=== PATIENT | male | born 1980 | race Caucasian/White ===

== ENCOUNTER 2018-02-05 17:39 | Emergency (ER) | payer OTHER ==
[2018-02-05] MEDS ORDERED: NACL 0.9% 1000 ML 1,000 ML IV ONE (19:29)
[2018-02-05] MEDS ORDERED: TORADOL IV ONE (19:29)
[2018-02-05] MEDS ORDERED: ZOFRAN IV ONE (19:29)
[2018-02-05] MEDS ORDERED: DILAUDID IV ONE (19:29)
[2018-02-05 19:48] LABS: Basophils % (Auto) 0.3 % (0.0-1.8); Eosinophils # (Auto) 0.1 K/mm3 (0.0-0.4); Eosinophils % (Auto) 1.4 % (0.0-4.3); Hemoglobin 13.1 gm/dl (11.8-15.2); Lymphocytes # (Auto) 1.3 K/mm3 (1.2-5.4); Lymphocytes % (Auto) 14.5 % (13.4-35.0); Mean Corpuscular HGB Conc 31 % (32-34); Mean Corpuscular Volume 71 fl (84-94); Monocytes # (Auto) 0.6 K/mm3 (0.0-0.8); Platelet Count 179 K/mm3 (140-440); Red Blood Count 6.01 M/mm3 (3.65-5.03); Red Cell Distribution Width 15.4 % (13.2-15.2)
[2018-02-05 19:49] LABS: Hematocrit 42.5 % (35.5-45.6); Mean Corpuscular Hemoglobin 22 pg (28-32)
[2018-02-05 20:05] LABS: Alanine Aminotransferase 41 units/L (7-56); Albumin 4.2 g/dL (3.9-5); BUN/Creatinine Ratio 15; Blood Urea Nitrogen 16 mg/dL (9-20); Calcium 8.9 mg/dL (8.4-10.2); Hemolysis Index 9
--- NOTE | 2018-02-05 21:01 | Cat Scan Report ---
FINAL REPORT PROCEDURE: CT ABDOMEN PELVIS WO CON TECHNIQUE: Computerized axial tomography of the abdomen and pelvis was performed without intravenous contrast. This study is performed without intravascular contrast material and its sensitivity for abdominal and pelvic pathology, including neoplasms, inflammation, abscess, free fluid, thrombosis, arterial dissection and infarction, is reduced compared with a contrast enhanced study. HISTORY: left flank pain COMPARISON: No prior studies are available for comparison. FINDINGS: Visualized lower thorax: Heart is at the upper limit of normal in size. Liver: Normal size and attenuation. Spleen: Normal size and attenuation. Gallbladder and biliary system: Normal. Pancreas: Normal. Adrenals: Normal. Kidneys: There is minimal left hydroureteronephrosis. There is a 2 millimeter calculus, located either in the left urinary bladder lumen or in the intramural portion of the distal left ureter. There is a 2 millimeter nonobstructing calculus in the right kidney lower pole. GI tract: The appendix is visualized and does not appear inflamed. No bowel obstruction or acute inflammation is seen. Lymph nodes and mesentery: Normal. Vasculature: Normal. Reproductive organs: Normal. Peritoneum: No free fluid. Musculoskeletal structures: No significant abnormality. Other: None. IMPRESSION: There is a 2 millimeter calculus located either within the left urinary bladder lumen or in the intramural portion of the distal left ureter. There is minimal left hydroureteronephrosis. Nonobstructing right renal calculus.
--- NOTE | 2018-02-05 21:38 | Emergency Department Report ---
ED Abdominal Pain HPI - General Chief Complaint: Abdominal Pain Stated Complaint: ABDOMINAL PAIN Time Seen by Provider: 02/05/18 19:21 Source: patient Mode of arrival: Ambulatory Limitations: No Limitations - History of Present Illness Initial Comments: Patient is a 37-year-old male who is being seen today for left flank pain. Patient states pain started approximately 8 hours ago abruptly and has been progressively worsening. Patient feels as though he is having difficulty urinating. Patient's had some nausea no vomiting. Patient denies any diarrhea. Patient states it's flank pain and there is some radiation to the left testicle. Patient states pain is a 10 out of 10 in severity. He has never had pain to this magnitude. Severity scale (0 -10): 10 - Related Data Previous Rx's Medication Instructions Recorded Last Taken Type Ciprofloxacin HCl [Cipro] 500 mg PO BID #14 tablet 02/05/18 Unknown Rx Ondansetron [Zofran Odt] 4 mg PO Q8HR PRN #10 tab.rapdis 02/05/18 Unknown Rx traMADol [Ultram] 50 mg PO Q6HR PRN #10 tablet 02/05/18 Unknown Rx Allergies Allergy/AdvReac Type Severity Reaction Status Date / Time ibuprofen AdvReac Bleeding Verified 02/05/18 17:57 ED Review of Systems ROS: Stated complaint: ABDOMINAL PAIN Other details as noted in HPI Comment: All other systems reviewed and negative ED Past Medical Hx - Past Medical History Previous Medical History?: Yes Additional medical history: foot fracture - Surgical History Past Surgical History?: Yes Additional Surgical History: right foot surgery - Social History Smoking Status: Unknown if ever smoked Substance Use Type: None - Medications Home Medications: Home Medications Medication Instructions Recorded Confirmed Last Taken Type Ciprofloxacin HCl [Cipro] 500 mg PO BID #14 tablet 02/05/18 Unknown Rx Ondansetron [Zofran Odt] 4 mg PO Q8HR PRN #10 tab.rapdis 02/05/18 Unknown Rx traMADol [Ultram] 50 mg PO Q6HR PRN #10 tablet 02/05/18 Unknown Rx ED Physical Exam - General Limitations: No Limitations General appearance: alert, in no apparent distress - Head Head exam: Present: atraumatic, normocephalic - Eye Eye exam: Present: normal appearance - ENT ENT exam: Present: mucous membranes moist - Neck Neck exam: Present: normal inspection - Respiratory Respiratory exam: Present: normal lung sounds bilaterally. Absent: respiratory distress - Cardiovascular Cardiovascular Exam: Present: regular rate, normal rhythm. Absent: systolic murmur, diastolic murmur, rubs, gallop - GI/Abdominal GI/Abdominal exam: Present: soft, normal bowel sounds - Rectal Rectal exam: Present: deferred - Extremities Exam Extremities exam: Present: normal inspection - Back Exam Back exam: Present: normal inspection - Neurological Exam Neurological exam: Present: alert, oriented X3 - Psychiatric Psychiatric exam: Present: normal affect, normal mood - Skin Skin exam: Present: warm, dry, intact, normal color. Absent: rash ED Course Vital Signs 02/05/18 02/05/18 02/05/18 17:51 19:28 19:36 Temperature 98.1 F 98.5 F Pulse Rate 67 68 Respiratory 18 14 Rate Blood Pressure 127/88 128/94 O2 Sat by Pulse 67 L 99 Oximetry 02/05/18 20:10 Temperature Pulse Rate 75 Respiratory 15 Rate Blood Pressure 123/81 O2 Sat by Pulse 96 Oximetry ED Medical Decision Making - Lab Data Result diagrams: 02/05/18 19:19 02/05/18 19:19 - Radiology Data Patient: SHAHNAZ BOURGEOIS MR#: [id number] : 02/17/1981 Acct:[id number] Age/Sex: 36 / F ADM Date: 02/05/18 Loc: ED Attending Dr: Ordering Physician: MARTHA VARGAS MD Date of Service: 02/05/18 Procedure(s): US abdomen limited Accession Number(s): [id number] cc: MARTHA VARGAS MD FINAL REPORT EXAM: US ABDOMEN LIMITED HISTORY: epigastric and RUQ pain TECHNIQUE: Ultrasound abdomen right upper quadrant PRIORS: None. FINDINGS: There is portion of the liver parenchyma is unremarkable. Multiple shadowing echogenic foci are present within the lumen of the gallbladder. There is gallbladder wall thickening measured 0.58 centimeters. The common bile duct is dilated measuring 0.82 centimeters in transverse diameter. Right kidney is 9.3 x 5.3 x 4.3 centimeters no evidence for hydronephrosis. Visualized portions of the pancreas are unremarkable Proximal abdominal aorta is 2.1 centimeters within limits. IMPRESSION: Cholelithiasis. Gallbladder wall thickening. Dilated common bile duct. Suspect acute cholecystitis and possible choledocholithiasis. Follow-up with MRCP or HIDA scan recommended Transcribed By: EUGENIE Dictated By: ARPIT ARSHAD MD Electronically Authenticated By: ARPIT ARSHAD MD Signed Date/Time: 02/05/18 493 - Medical Decision Making The patient has a the patient's pain did resolve almost completely. Patient does show he has a past 2 mm stone in the end of the bladder. Patient be discharged home. Critical care attestation.: If time is entered above; I have spent that time in minutes in the direct care of this critically ill patient, excluding procedure time. ED Disposition Clinical Impression: Kidney stone Disposition: DC-01 TO HOME OR SELFCARE Is pt being admited?: No Does the pt Need Aspirin: No Condition: Stable Instructions: Kidney Stones (ED) Referrals: PRIMARY CARE, [Primary Care Provider] - 3-5 Days Print Language: DANISH
[2018-02-05 22:26] VITALS: BP 121/77
== END 2018-02-05 22:10 | disposition home or self-care (01) ==
LOC: ED 17:39
DX: N20.0 Calculus of kidney (principal); Z88.6 Allergy status to analgesic agent
CPT/HCPCS: 36415; 74176; 80053; 85025; 96374; 96375; 99284; J1170; J1885; J2405; J7030; 96361

== ENCOUNTER 2020-07-14 21:03 | Emergency (ER) | payer SELFPAY ==
[2020-07-14 21:31] VITALS: BP 138/82
[2020-07-15 00:25] LABS: Bacteria,Urine 1+ /HPF (Negative); Bilirubin,Urine NEG (Negative); Blood,Urine LG (Negative); Color,Urine Amber (Yellow); Mucus,Urine 1+ /HPF; Urobilinogen,Urine < 2.0 mg/dL (<2.0)
[2020-07-15 00:30] LABS: Protein,Urine <15 mg/dL mg/dL (Negative)
[2020-07-15 00:31] LABS: RBC,Urine > 182.0 /HPF (0.0-6.0)
[2020-07-15] MEDS ORDERED: KETOROLAC 30 MG/1 ML INJ IV ONE (01:14)
[2020-07-15] MEDS ORDERED: ONDANSETRON 4 MG/2 ML INJ IV ONE (01:14)
[2020-07-15] MEDS ORDERED: SODIUM CHLORIDE 0.9% 1000 ML 1,000 ML IV ONE (01:14)
--- NOTE | 2020-07-15 01:21 | Emergency Department Report ---
ED Abdominal Pain HPI - General Chief Complaint: Abdominal Pain Stated Complaint: ABDOMINAL PAIN Source: patient Mode of arrival: Ambulatory Limitations: No Limitations - History of Present Illness Initial Comments: Patient is a 39-year-old male who is being seen today for bilat flank pain. Has hx of renal stones , states pain started approximately 2 hours ago while doing nothing , states if "feels like it did when I had Kidney stone". Pain is exacerbated by urinating. Pain is resolved by nothing tried, Patient's had some nausea and vomiting x 1 tonight. Patient denies any diarrhea. Patient states his flank pain radiates to super pubic region. there are no fever or chills. pt Patient states pain is a 5/10 in severity. Pt is not followed by urology MD Complaint: abdominal pain - Related Data Previous Rx's Medication Instructions Recorded Last Taken Type Ciprofloxacin HCl [Cipro] 500 mg PO BID #14 tablet 02/05/18 Unknown Rx Ondansetron [Zofran Odt] 4 mg PO Q8HR PRN #10 tab.rapdis 02/05/18 Unknown Rx traMADoL [Ultram] 50 mg PO Q6HR PRN #10 tablet 02/05/18 Unknown Rx Ciprofloxacin HCl [Ciprofloxacin 500 mg PO BID 10 Days #20 tab 07/15/20 Unknown Rx TAB] Ketorolac [Toradol] 10 mg PO Q6H PRN #12 tablet 07/15/20 Unknown Rx Tamsulosin [Flomax] 0.4 mg PO QDAY #14 cap 07/15/20 Unknown Rx Allergies Allergy/AdvReac Type Severity Reaction Status Date / Time ibuprofen AdvReac Bleeding Verified 02/05/18 17:57 ED Review of Systems ROS: Stated complaint: ABDOMINAL PAIN Other details as noted in HPI Constitutional: denies: chills, fever Eyes: denies: eye pain, eye discharge, vision change ENT: denies: ear pain, throat pain Respiratory: denies: cough, shortness of breath, wheezing Cardiovascular: denies: chest pain, palpitations Endocrine: no symptoms reported Gastrointestinal: nausea, vomiting. denies: abdominal pain, diarrhea, constipation, hematemesis, melena, hematochezia Genitourinary: urgency, dysuria, frequency. denies: hematuria, discharge, testicular pain, testicular mass Musculoskeletal: denies: back pain, joint swelling, arthralgia Skin: denies: rash, lesions Neurological: denies: headache, weakness, paresthesias Psychiatric: denies: anxiety, depression Hematological/Lymphatic: denies: easy bleeding, easy bruising ED Past Medical Hx - Past Medical History Previous Medical History?: Yes Hx Kidney Stones: Yes Additional medical history: foot fracture - Surgical History Past Surgical History?: Yes Additional Surgical History: right foot surgery - Social History Smoking Status: Never Smoker Substance Use Type: None - Medications Home Medications: Home Medications Medication Instructions Recorded Confirmed Last Taken Type Ciprofloxacin HCl [Cipro] 500 mg PO BID #14 tablet 02/05/18 Unknown Rx Ondansetron [Zofran Odt] 4 mg PO Q8HR PRN #10 tab.rapdis 02/05/18 Unknown Rx traMADoL [Ultram] 50 mg PO Q6HR PRN #10 tablet 02/05/18 Unknown Rx Ciprofloxacin HCl [Ciprofloxacin 500 mg PO BID 10 Days #20 tab 07/15/20 Unknown Rx TAB] Ketorolac [Toradol] 10 mg PO Q6H PRN #12 tablet 07/15/20 Unknown Rx Tamsulosin [Flomax] 0.4 mg PO QDAY #14 cap 07/15/20 Unknown Rx ED Physical Exam - General Limitations: No Limitations General appearance: alert, in no apparent distress - Head Head exam: Present: atraumatic, normocephalic - Eye Eye exam: Present: normal appearance - ENT ENT exam: Present: mucous membranes moist - Neck Neck exam: Present: normal inspection, full ROM. Absent: tenderness - Respiratory Respiratory exam: Present: normal lung sounds bilaterally. Absent: respiratory distress, wheezes, rhonchi - Cardiovascular Cardiovascular Exam: Present: regular rate, normal rhythm, normal heart sounds. Absent: systolic murmur, diastolic murmur, rubs, gallop - GI/Abdominal GI/Abdominal exam: Present: soft, normal bowel sounds. Absent: distended, t enderness, guarding, rebound, rigid, bruit, hernia - Rectal Rectal exam: Present: deferred - Extremities Exam Extremities exam: Present: normal inspection, full ROM. Absent: tenderness - Back Exam Back exam: Present: normal inspection, full ROM. Absent: tenderness, CVA tenderness (R), CVA tenderness (L), vertebral tenderness - Neurological Exam Neurological exam: Present: alert, oriented X3, normal gait - Psychiatric Psychiatric exam: Present: normal affect, normal mood - Skin Skin exam: Present: warm, dry, intact, normal color. Absent: rash ED Course Vital Signs 07/14/20 21:27 Temperature 98.6 F Pulse Rate 78 Respiratory 20 Rate Blood Pressure 138/82 O2 Sat by Pulse 98 Oximetry ED Medical Decision Making - Lab Data Result diagrams: 07/15/20 01:34 Labs 07/14/20 23:39 Urine Color Anastasia Urine Turbidity Cloudy Urine pH 5.0 Ur Specific [place] 1.021 Urine Protein <15 mg/dl Urine Glucose (UA) Neg Urine Ketones Neg Urine Blood Lg Urine Nitrite Neg Urine Bilirubin Neg Urine Urobilinogen < 2.0 Ur Leukocyte Esterase Neg Urine WBC (Auto) 8.0 H Urine RBC (Auto) > 182.0 Urine Bacteria (Auto) 1+ Urine Mucus 1+ - Radiology Data Radiology results: report reviewed, image reviewed Findings Reporting MD: Porter Gandhi Dictation Time: July 15, 2020 01:13 Field Technical Specialist: Not available Clinical Specialist Medical Device Date: CT ABDOMEN AND PELVIS WITHOUT CONTRAST HISTORY: Pt complains of bi-lateral flank pain. Hx of previous stone(s).. COMPARISON: CT abdomen/pelvis from 02/05/2018 TECHNIQUE: CT images of the abdomen and pelvis were obtained without administration of intravenous contrast. All CT scans at this location are performed using CT dose reduction for ALARA by means of automated exposure control. FINDINGS: Lungs/bones: There are scattered tiny pulmonary nodules in both lung bases measuring up to roughly 4 mm in maximal dimension. A couple scattered calcified granulomata are also noted. No acute osseous abnormality. Abdomen/pelvis: 3 mm stone in the distal right ureter as seen on image 178 of series #2 with mild right-sided hydronephrosis. Punctate nonobstructive nephr olithiasis is also present in the left upper renal pole region on image #67. Kidneys are otherwise normal. There is hepatic steatosis. Liver is otherwise normal. There is minimal cholelithiasis with no inflammatory change. The spleen, pancreas, adrenals, and proximal GI tract appear unremarkable. Urinary bladder and prostate are normal with no pelvic free fluid. No acute colonic abnormality. The appendix is normal. IMPRESSION: 1. 3 mm stone in the distal right ureter with mild hydronephrosis. 2. Additional incidental findings as above including tiny scattered pulmonary nodules. Please see below recommendations. INCIDENTAL PULMONARY NODULE RECOMMENDATION RECOMMENDATION: Solid Nodule size <6 mm -- Single or Multiple - Low Risk Patient: No routine follow-up - Medical Decision Making UA: pos for Luek , Bacteria, blood , abd exam normal, 3 mm distal ureteral stone noted on CT abdomen pelvis without contrast. This is a recurrent problem for this patient. Current pain is reduced with medications given in ED. Plan, Cipro, Flomax, Ultram, follow-up with urology in 2 to 3 days. Patient verbalizes agreement and understanding with discharge plan. Patient DC'd home in stable condition at this time. Critical care attestation.: If time is entered above; I have spent that time in minutes in the direct care of this critically ill patient, excluding procedure time. ED Disposition Clinical Impression: Urethral calculus Disposition: DC-01 TO HOME OR SELFCARE Is pt being admited?: No Does the pt Need Aspirin: No Condition: Stable Instructions: Kidney Stones, Yvae-ei-Nadl Prescriptions: Ciprofloxacin HCl [Ciprofloxacin TAB] 500 mg PO BID 10 Days #20 tab Tamsulosin [Flomax] 0.4 mg PO QDAY #14 cap Ketorolac [Toradol] 10 mg PO Q6H PRN #12 tablet PRN Reason: Pain Referrals: PRIMARY CAREMD [Primary Care Provider] - 3-5 Days JAVI LIRA MD [Staff Physician] - 3-5 Days Forms: Work/School Release Form(ED) Time of Disposition: 02:25 Print Language: BELIZEAN
[2020-07-15 01:48] LABS: Basophils % (Auto) 0.2 % (0.0-1.8); Eosinophils # (Auto) 0.1 K/mm3 (0.0-0.4); Eosinophils % (Auto) 0.8 % (0.0-4.3); Hematocrit 42.8 % (35.5-45.6); Hemoglobin 14.1 gm/dl (11.8-15.2); Lymphocytes # (Auto) 1.4 K/mm3 (1.2-5.4); Lymphocytes % (Auto) 15.1 % (13.4-35.0); Mean Corpuscular HGB Conc 33 % (32-34); Monocytes # (Auto) 0.8 K/mm3 (0.0-0.8); Monocytes % (Auto) 8.6 % (0.0-7.3); Platelet Count 200 K/mm3 (140-440); Red Blood Count 6.14 M/mm3 (3.65-5.03); Red Cell Distribution Width 14.8 % (13.2-15.2)
[2020-07-15 01:50] LABS: Mean Corpuscular Volume 70 fl (84-94)
--- NOTE | 2020-07-15 02:17 | Cat Scan Report ---
CT ABDOMEN AND PELVIS WITHOUT CONTRAST HISTORY: Pt complains of bi-lateral flank pain. Hx of previous stone(s).. COMPARISON: CT abdomen/pelvis from 02/05/2018 TECHNIQUE: CT images of the abdomen and pelvis were obtained without administration of intravenous co ntrast. All CT scans at this location are performed using CT dose reduction for ALARA by means of au tomated exposure control. FINDINGS: Lungs/bones: There are scattered tiny pulmonary nodules in both lung bases measuring up to roughly 4 mm in maximal dimension. A couple scattered calcified granulomata are also noted. No acute osseous a bnormality. Abdomen/pelvis: 3 mm stone in the distal right ureter as seen on image 178 of series #2 with mild ri ght-sided hydronephrosis. Punctate nonobstructive nephrolithiasis is also present in the left upper r enal pole region on image #67. Kidneys are otherwise normal. There is hepatic steatosis. Liver is otherwise normal. There is minimal cholelithiasis with no inflam matory change. The spleen, pancreas, adrenals, and proximal GI tract appear unremarkable. Urinary bladder and prostate are normal with no pelvic free fluid. No acute colonic abnormality. The appendix is normal. IMPRESSION: 1. 3 mm stone in the distal right ureter with mild hydronephrosis. 2. Additional incidental findings as above including tiny scattered pulmonary nodules. Please see bel ow recommendations. INCIDENTAL PULMONARY NODULE RECOMMENDATION RECOMMENDATION: Solid Nodule size <6 mm -- Single or Multiple - Low Risk Patient: No routine follow-up - High Risk Patient: Optional CT at 12 months Note These recommendations do not apply to lung cancer screening, patients with immunosuppression, o r patients with known primary cancer. Note Newly detected indeterminate nodule in persons 35 years of age or older. Persons under the age of 35 should not receive follow-up unless there is a known primary cancer. Note A Perifissural Nodule is a fissure-attached/subpleural, homogeneous, solid nodule that had smoo th margins and an oval, lentiform, or triangular shape. They represent about 20% of nodules detected in lung cancer screening, are invariably benign, and do not require follow-up. Nodules 10 mm or large r (or those with suspicious features) will continue to be managed based on the size criteria. Low Risk Patient -- minimal or absent history of smoking and of other known risk factors. High Risk Patient -- history of smoking or of other known risk factors. Nodule dimensions are average of long and short axes, rounded to the nearest millimeter. Based on 2017 Fleischner Society Guidelines found in Radiology 2017 284:228-243. https://doi.[email or web address] https://www.ncbi.nlm.nih.gov/pmc/articles/OIH8379238/ Signer Name: Porter Gandhi MD Signed: 07/15/2020 2:13 AM Workstation Name: [email or web address] [id number]
[2020-07-15 02:23] LABS: Alanine Aminotransferase 52 units/L (7-56); Albumin 4.5 g/dL (3.9-5); BUN/Creatinine Ratio 16; Blood Urea Nitrogen 13 mg/dL (9-20); Calcium 9.5 mg/dL (8.4-10.2); Hemolysis Index 8
== END 2020-07-15 02:40 | disposition home or self-care (01) ==
LOC: ED 21:03
DX: N21.1 Calculus in urethra (principal); Z98.890 Other specified postprocedural states; Z79.899 Other long term (current) drug therapy; Z88.8 Allergy status to other drugs, medicaments and biological substances
CPT/HCPCS: 36415; 74176; 80053; 81001; 85025; 96361; 96374; 96375; 99284; J1885; J2405; J7030